=== PATIENT | female | born 1950 | race Caucasian/White ===

== ENCOUNTER 2016-10-15 09:14 | Emergency (ER) | END 2016-10-15 12:48 | disposition home or self-care (01) ==

== ENCOUNTER 2017-04-23 07:33 | Outpatient (CLI) | payer OTHER | END 2017-04-23 07:34 | disposition home or self-care (01) | DX: Z00.00 Encounter for general adult medical examination without abnormal findings (principal); Z79.899 Other long term (current) drug therapy; M81.0 Age-related osteoporosis without current pathological fracture ==

== ENCOUNTER 2017-05-28 10:50 | Outpatient (CLI) | payer OTHER ==
--- NOTE | 2017-05-29 07:56 | Mammography Report ---
REVISED: THIS REPORT WAS ORIGINALLY SIGNED ON 05/29/2017 @ 0913. ORDERS LINKED ON 05/31/2017. DIGITAL BILATERAL DIAGNOSTIC MAMMOGRAM BILATERAL ULTRASOUND: 05/28/2017 CLINICAL HISTORY: A 66-year-old female presenting with reported pain in the right axilla and a palpable lump in the upper-outer quadrant of the left breast. MAMMOGRAM TECHNIQUE: Bilateral CC, MLO and true lateral views obtained. COMPARISON: 08/2016, 07/2014, 08/2009, and 10/2007. MAMMOGRAM FINDINGS: Scattered fibroglandular tissue is present. There is no developing mass, distortion, pleomorphic calcifications or regional skin thickening. Specific attention to the area of pain in the right breast and the sites of palpable concern in the left breast are mammographically negative. There are no suspicious findings. ULTRASOUND TECHNIQUE: A high frequency transducer was utilized to evaluate the areas of reported clinical concern. Survey Coordinator static images obtained. The right axilla and upper-outer quadrant of the left breast were scanned ( areas of reported concern). ULTRASOUND FINDINGS: Normal fibrofatty tissue is identified. No adenopathy, skin thickening, regional hyperemia or shadowing distortion. There are no sonographically suspicious findings. IMPRESSION: (BASED ON BILATERAL MAMMOGRAM AND BILATERAL ULTRASOUND) NEGATIVE EXAMINATION. NO SUSPICIOUS FINDINGS (BIRADS CATEGORY: 1, NEGATIVE). RECOMMENDATION: CLINICAL FOLLOWUP. NEGATIVE IMAGING SHOULD NOT DISSUADE FURTHER EVALUATION OF ANY SUSPICIOUS CHANGES. ANNUAL SCREENING MAMMOGRAPHY IS RECOMMENDED. STANDARD QUALIFYING STATEMENTS 1. This examination was reviewed with the aid of Computed-Aided Detection (CAD) . 2. A negative or benign imaging report should not delay biopsy if clinically suspicious findings are present. Consider surgical consultation if warranted. More than 5% of cancers are not identified by imaging. 3. Dense breasts may obscure an underlying neoplasm. JOB #: [id number] EXT JOB #: [id number] SELIN
== END 2017-05-28 10:51 | disposition home or self-care (01) ==
LOC: DI 10:50
PROVIDERS: ATTEND Physician Assistant Medical
DX: N63 Unspecified lump in breast (principal)
CPT/HCPCS: 76642; 77066

== ENCOUNTER 2018-05-26 08:01 | Outpatient (CLI) | payer OTHER ==
[2018-05-26 08:25] LABS: BASOPHILS # (AUTO) 0.1 10^3/uL (0.0-0.1); EOSINOPHILS # (AUTO) 0.1 10^3/uL (0.0-0.7); EOSINOPHILS % (AUTO) 2.1 %; HGB - HEMOGLOBIN 13.8 g/dL (12.0-16.0); LYMPHOCYTES # (AUTO) 1.3 10^3/uL (1.5-3.5); LYMPHOCYTES % (AUTO) 22.9 %; MEAN CORPUSCULAR HEMOGLOBIN 29.3 pg (27.0-31.0); MEAN CORPUSCULAR HGB CONC 34.4 g/dL (32.0-36.0); MEAN CORPUSCULAR VOLUME 85.2 fL (81.0-99.0); MONOCYTES # (AUTO) 0.5 10^3/uL (0.0-1.0); MONOCYTES % (AUTO) 8.6 %; NEUTROPHILS # (AUTO) 3.8 10^3/uL (1.5-6.6); NEUTROPHILS % (AUTO) 65.4 %; PLT - PLATELET COUNT 183 10^3/uL (130-450); RED BLOOD COUNT 4.71 10^6/uL (4.20-5.40); RED CELL DISTRIBUTION WIDTH 14.4 % (12.0-15.0); WHITE BLOOD COUNT 5.8 x10^3/uL (4.8-10.8)
[2018-05-26 09:44] LABS: ALBUMIN 4.1 g/dL (3.2-5.5); ALBUMIN/GLOBULIN RATIO 1.1 (1.0-2.2); ALKALINE PHOSPHATASE 39 IU/L (42-121); ALT ALANINE AMINOTRANSFERASE 15 IU/L (10-60); AST ASPARTATE AMINOTRANSFERASE 22 IU/L (10-42); BILIRUBIN,TOTAL 0.7 mg/dL (0.2-1.0); BUN - BLOOD UREA NITROGEN 19 mg/dL (6-20); CALCIUM 9.2 mg/dL (8.5-10.3); CARBON DIOXIDE - CO2 28 mmol/L (21-32); CHLORIDE 105 mmol/L (101-111); CHOL/HDL RATIO 3.6 (<4.4); CHOLESTEROL 199 mg/dL; CREATININE 0.8 mg/dL (0.4-1.0); GFR - MDRD 72 (>89); GLUCOSE 107 mg/dL (70-100); HDL CHOLESTEROL 55 mg/dL; LDL CHOLESTEROL,CALCULATED 123 mg/dL; LDL/HDL RATIO 2.2 (<4.4); SODIUM 141 mmol/L (135-145); TOTAL PROTEIN 7.7 g/dL (6.7-8.2); VLDL CHOLESTEROL 21 mg/dL
== END 2018-05-26 08:02 | disposition home or self-care (01) ==
LOC: LAB 08:01
PROVIDERS: ATTEND Physician Assistant Medical
DX: Z00.00 Encounter for general adult medical examination without abnormal findings (principal); M81.0 Age-related osteoporosis without current pathological fracture; E55.9 Vitamin D deficiency, unspecified; E03.9 Hypothyroidism, unspecified; Z79.899 Other long term (current) drug therapy
CPT/HCPCS: 36415; 80053; 80061; 82306; 83721; 84443; 85025

== ENCOUNTER 2019-04-21 16:19 | Outpatient (CLI) | payer OTHER ==
--- NOTE | 2019-04-22 10:03 | Ultrasound Report ---
Reason: PELVIC PAIN Procedure Date: 04/21/2019 Accession Number: [id number] / [id number] Procedure: US - Pelvic w/Transvaginal CPT Code: FULL RESULT: EXAM: PELVIC ULTRASOUND EXAM DATE: 04/21/2019 05:15 PM. CLINICAL HISTORY: Pelvic pain. COMPARISON: None. TECHNIQUE: Realtime transabdominal pelvic scan performed to identify the uterus and adnexa and as an overview of other pelvic structures, followed by transvaginal scan to provide greater detail of the uterus and adnexa, with static image documentation. FINDINGS: Uterus: 5.8 x 1.9 x 3.3 cm, volume 19 cc. Anteverted position. Normal overall size and echotexture. Masses: None. Endometrium: 2 mm. A few echogenic foci in the fundal area of the endometrium, air versus small amount of calcification, favor air given 30 shadowing. Cervix: Unremarkable. Right Ovary: Not seen despite best transabdominal and transvaginal attempt due to poor acoustic window. Adnexal region is within normal limits. Left Ovary: 1.8 x 1.7 x 2.0 cm, volume 3.2 cc. Normal echotexture and blood flow. Cyst measuring up to 1.7 cm is within physiologic limits. Free Fluid: None. Other: None. IMPRESSION: A few echogenic foci within the endometrium likely represent air, nonspecific finding. Nonvisualization of the right ovary. Normal endometrial thickness. RADIA
== END 2019-04-21 16:20 | disposition home or self-care (01) ==
LOC: DI 16:19
PROVIDERS: ATTEND Nurse Practitioner
DX: R10.2 Pelvic and perineal pain (principal)
CPT/HCPCS: 76830; 76856

== ENCOUNTER 2019-06-13 10:15 | Outpatient (CLI) | payer OTHER ==
--- NOTE | 2019-06-16 00:59 | XRAY Report ---
Reason: SHOULDER JOINT PAIN,LEFT Procedure Date: 06/13/2019 Accession Number: [id number] / [id number] Procedure: XR - Shoulder 3 View LT CPT Code: FULL RESULT: EXAM: LEFT SHOULDER RADIOGRAPHY EXAM DATE: 06/13/2019 10:49 AM. CLINICAL HISTORY: Left shoulder pain after injury. COMPARISON: None. TECHNIQUE: 3 views. FINDINGS: Bones: No fracture seen. Joints: No dislocation. Glenohumeral joint and acromioclavicular joint appear intact. Soft tissues: Grossly unremarkable. IMPRESSION: 1. No acute abnormality seen in the shoulder. RADIA
== END 2019-06-13 10:16 | disposition home or self-care (01) ==
LOC: DI 10:15
PROVIDERS: ATTEND Nurse Practitioner
DX: M25.512 Pain in left shoulder (principal)

== ENCOUNTER 2019-07-17 08:09 | Outpatient (CLI) | payer OTHER ==
[2019-07-17 08:50] LABS: BASOPHILS % (AUTO) 0.6 %; EOSINOPHILS # (AUTO) 0.1 10^3/uL (0.0-0.7); EOSINOPHILS % (AUTO) 1.9 %; HGB - HEMOGLOBIN 12.8 g/dL (12.0-16.0); LYMPHOCYTES # (AUTO) 1.4 10^3/uL (1.5-3.5); LYMPHOCYTES % (AUTO) 19.9 %; MEAN CORPUSCULAR HGB CONC 32.6 g/dL (32.0-36.0); MEAN CORPUSCULAR VOLUME 88.9 fL (81.0-99.0); MEAN PLATELET VOLUME 10.1 fL (7.9-10.8); MONOCYTES # (AUTO) 0.7 10^3/uL (0.0-1.0); MONOCYTES % (AUTO) 9.9 %; NEUTROPHILS # (AUTO) 4.7 10^3/uL (1.5-6.6); NEUTROPHILS % (AUTO) 67.4 %; PLT - PLATELET COUNT 199 10^3/uL (130-450); RED BLOOD COUNT 4.42 10^6/uL (4.20-5.40); RED CELL DISTRIBUTION WIDTH 13.6 % (12.0-15.0); WHITE BLOOD COUNT 6.9 x10^3/uL (4.8-10.8)
== END 2019-07-17 08:10 | disposition home or self-care (01) ==
LOC: LAB 08:09
PROVIDERS: ATTEND Nurse Practitioner
DX: R53.83 Other fatigue (principal); E55.9 Vitamin D deficiency, unspecified; E03.9 Hypothyroidism, unspecified
CPT/HCPCS: 36415; 82306; 84443; 85025

== ENCOUNTER 2019-08-11 15:03 | Emergency (ER) | payer OTHER ==
[2019-08-11 15:14] VITALS: BP 105/81
--- NOTE | 2019-08-11 15:59 | ED Physician Documentation ---
History of Present Illness - Stated complaint Stated Complaint: JAW PX - Chief complaint Chief Complaint: General - History obtained from History obtained from: Patient, Friend - History of Present Illness Timing: Enter time (1230), Today - Additonal information Additional information: 68-year-old female previously well indicates that she was in a meeting today at work when she began to develop some pain in her right jaw. She states the pain is throbbing in nature and was severe enough that she left the meeting and went to go see her physician. Her doctor's office was not able to see her and suggested she come to the emergency department with a concern about the possibility of atypical presentation of coronary disease. The patient states that she is not having chest pain she is not having shortness of breath and she does not have radiation of the pain elsewhere. She became concerned when she was out in the waiting room and developed some numbness in her left hand. Her family history is negative for coronary artery disease she has 4 siblings without coronary disease and she has a mother who had strokes in her 70s but lived to be . The patient states that she is not otherwise been ill. Review of Systems Constitutional: denies: Fever Eyes: denies: Decreased vision Ears: denies: Ear pain Nose: denies: Rhinorrhea / runny nose, Congestion Throat: reports: Dental pain / toothache Cardiac: denies: Chest pain / pressure, Palpitations, Pedal edema, Calf pain Respiratory: denies: Dyspnea, Cough, Wheezing GI: denies: Abdominal Pain, Nausea, Vomiting : denies: Dysuria, Frequency Skin: denies: Rash, Lesions Musculoskeletal: denies: Neck pain, Back pain, Extremity pain Neurologic: reports: Numbness (left hand). denies: Generalized weakness, Focal weakness PD PAST MEDICAL HISTORY - Past Surgical History Past Surgical History: No - Present Medications Home Medications: Ambulatory Orders Medication Instructions Recorded Confirmed Albuterol Sulfate [Proair Hfa 2 puffs IH QID #1 hfa.aer.ad 10/10/16 10/15/16 Inhaler] Azithromycin [Zithromax] 250 mg PO DAILY #6 tablet 10/10/16 10/15/16 Levothyroxine Sodium [Levoxyl] 100 mcg ORAL DAILY 10/10/16 10/15/16 guaiFENesin/CODEINE [Robitussin AC] 10 ml PO Q6H PRN #240 ml 10/10/16 10/15/16 Benzonatate [Tessalon] 100 mg PO TID PRN #20 capsule 10/15/16 guaiFENesin/DEXTROMETHORPHAN 10 ml PO Q6H PRN #120 ml 10/15/16 [Robitussin Dm] predniSONE [Deltasone] 60 mg PO DAILY 5 Days tablet 10/15/16 - Allergies Allergies/Adverse Reactions: Allergies Allergy/AdvReac Type Severity Reaction Status Date / Time No Known Drug Allergies Allergy Verified 10/15/16 09:21 - Social History Does the pt smoke?: No Smoking Status: Never smoker Does the pt drink ETOH?: Yes Does the pt have substance abuse?: No - Immunizations Immunizations are current?: Yes PD ED PE NORMAL - Vitals Vital signs reviewed: Yes (hypertensive diastolic mild as possible ) - General General: Alert and oriented X 3, No acute distress, Well developed/nourished - HEENT HEENT: Atraumatic, PERRL, EOMI, Ears normal, Moist mucous membranes, Pharynx benign, Dentition benign, Other (There is tenderness to the jaw over the maxilla near the ear on the right side. The molar underlying that area is not tender and appears intact. ) - Neck Neck: Supple, no meningeal sign, No bony TTP - Cardiac Cardiac: RRR, No murmur - Respiratory Respiratory: No respiratory distress, Clear bilaterally - Abdomen Abdomen: Normal bowel sounds, Soft, Non tender, Non distended, No organomegaly - Back Back: No CVA TTP, No spinal TTP - Derm Derm: Normal color, Warm and dry, No rash - Extremities Extremities: No deformity, No edema - Neuro Neuro: Alert and oriented X 3, benefits coordinator 2-12 intact, No motor deficit, No sensory deficit, Normal speech Eye Opening: Spontaneous Motor: Obeys Commands Verbal: Oriented GCS Score: 15 - Psych Psych: Normal mood, Normal affect Results - Vitals Vitals: Vital Signs - 24 hr 08/11/19 15:11 Temperature 37 C Heart Rate 79 Respiratory 16 Rate Blood Pressure 105/81 H O2 Saturation 99 Oxygen O2 Source Room air - EKG (time done) 1521 Rate: Rate (enter#) (73) Rhythm: NSR Ischemia: Normal ST segments Compare to prior EKG: Old EKG unavailable Computer interpretation: Agree with computer - Labs Labs: Laboratory Tests 08/11/19 08/11/19 08/11/19 16:06 16:06 16:06 WBC 7.2 RBC 4.76 Hgb 13.6 Hct 41.8 MCV 87.8 MCH 28.6 MCHC 32.5 RDW 13.7 Plt Count 183 MPV 9.8 Neut # (Auto) 5.2 Lymph # (Auto) 1.3 L [place] # (Auto) 0.6 Eos # (Auto) 0.1 Baso # (Auto) 0.0 Absolute Nucleated RBC 0.00 Nucleated RBC % 0.0 Sodium 144 Potassium 4.0 Chloride 106 Carbon Dioxide 29 Anion Gap 9.0 BUN 12 Creatinine 0.8 Estimated GFR (MDRD) 72 L Glucose 92 Calcium 10.1 Total Bilirubin 0.7 AST 19 ALT 18 Alkaline Phosphatase 46 Troponin I High Sens < 2.3 L Total Protein 8.2 Albumin 4.7 Globulin 3.5 Albumin/Globulin Ratio 1.3 Lipase 46 - Rads (name of study) chest Radiology: Prelim report reviewed (Impression: No convincing acute cardiopulmonary abnormality.), EMP read indepedently, See rad report PD MEDICAL DECISION MAKING - ED course Complexity details: reviewed results, re-evaluated patient, considered differential, d/w patient, d/w family ED course: 68-year-old previously well female with some right jaw pain has some tenderness to the right jaw and very likely this is all related to her job. She is concerned about the possibility of coronary disease as her physician was and we have done due diligence to include this in her work-up. I suspect the patient may have necrosis a nerve to a tooth secondary to excessive pressure from grinding her teeth during a stressful meeting. Departure - Departure Disposition: 01 Home, Self Care Clinical Impression: Jaw pain Condition: Stable Instructions: ED TMJ Syndrome Follow-Up: Magdalene Braxton ARNP, CONSULTING SENIOR PRACTICE DIRECTOR-C [Primary Care Provider] -
[2019-08-11 16:09] LABS: BASOPHILS % (AUTO) 0.6 %; EOSINOPHILS # (AUTO) 0.1 10^3/uL (0.0-0.7); HGB - HEMOGLOBIN 13.6 g/dL (12.0-16.0); LYMPHOCYTES # (AUTO) 1.3 10^3/uL (1.5-3.5); LYMPHOCYTES % (AUTO) 17.8 %; MEAN CORPUSCULAR HEMOGLOBIN 28.6 pg (27.0-31.0); MEAN CORPUSCULAR HGB CONC 32.5 g/dL (32.0-36.0); MEAN CORPUSCULAR VOLUME 87.8 fL (81.0-99.0); MEAN PLATELET VOLUME 9.8 fL (7.9-10.8); MONOCYTES # (AUTO) 0.6 10^3/uL (0.0-1.0); MONOCYTES % (AUTO) 7.8 %; NEUTROPHILS # (AUTO) 5.2 10^3/uL (1.5-6.6); NEUTROPHILS % (AUTO) 72.5 %; PLT - PLATELET COUNT 183 10^3/uL (130-450); RED BLOOD COUNT 4.76 10^6/uL (4.20-5.40); RED CELL DISTRIBUTION WIDTH 13.7 % (12.0-15.0); WHITE BLOOD COUNT 7.2 x10^3/uL (4.8-10.8)
[2019-08-11 16:26] LABS: ALBUMIN 4.7 g/dL (3.2-5.5); ALBUMIN/GLOBULIN RATIO 1.3 (1.0-2.2); BILIRUBIN,TOTAL 0.7 mg/dL (0.2-1.0); CALCIUM 10.1 mg/dL (8.5-10.3); CREATININE 0.8 mg/dL (0.4-1.0); TOTAL PROTEIN 8.2 g/dL (6.7-8.2)
--- NOTE | 2019-08-11 16:35 | XRAY Report ---
Reason: chest pain Procedure Date: 08/11/2019 Accession Number: [id number] / [id number] Procedure: XR - Chest 1 View X-Ray CPT Code: 46218 FULL RESULT: EXAM: CHEST RADIOGRAPHY EXAM DATE: 08/11/2019 04:24 PM. CLINICAL HISTORY: Chest pain. COMPARISON: CHEST 2 VIEW PA/LAT 10/15/2016 10:55 AM. TECHNIQUE: 1 view. FINDINGS: Lungs/Pleura: No focal opacities evident. Stable tiny presumed granuloma right lung base. No pleural effusion. No pneumothorax. Mediastinum: Within exam limitations, the cardiomediastinal contour is normal. Other: None. IMPRESSION: No convincing acute cardiopulmonary abnormality. RADIA
== END 2019-08-11 16:53 | disposition home or self-care (01) ==
LOC: ED 15:03
DX: R68.84 Jaw pain (principal)
CPT/HCPCS: 36415; 71045; 80053; 83690; 84484; 85025; 93005; 99283; 99284

== ENCOUNTER 2020-12-26 07:00 | Outpatient (CLI) | payer BC ==
[2021-01-03 14:21] LABS: BACTERIAL VAGINOSIS DNA POSITIVE (NEGATIVE); CANDIDA KRUSEI DNA NEGATIVE (NEGATIVE); TRICHOMONAS VAGINALIS DNA NEGATIVE (NEGATIVE)
[2021-01-03 14:22] LABS: CANDIDA GLABRATA DNA NEGATIVE (NEGATIVE); CANDIDA GROUP DNA NEGATIVE (NEGATIVE)
== END 2020-12-26 23:59 | disposition home or self-care (01) ==
LOC: LAB.R 07:00
PROVIDERS: ATTEND Obstetrics & Gynecology
DX: B37.3 Candidiasis of vulva and vagina (principal)
CPT/HCPCS: 87661; 87801

== ENCOUNTER 2020-12-30 08:20 | Outpatient (CLI) | payer BC ==
[2020-12-30 12:12] LABS: ESTIMATED AVERAGE GLUCOSE 105 mg/dL (70-100); HEMOGLOBIN A1c% 5.3 % (4.27-6.07)
== END 2020-12-30 08:21 | disposition home or self-care (01) ==
LOC: LAB 08:20
PROVIDERS: ATTEND Obstetrics & Gynecology
DX: B37.3 Candidiasis of vulva and vagina (principal)
CPT/HCPCS: 36415; 83036

== ENCOUNTER 2021-04-20 08:00 | Outpatient (CLI) | payer BC ==
[2021-04-20 21:51] LABS: BACTERIAL VAGINOSIS DNA POSITIVE (NEGATIVE); CANDIDA KRUSEI DNA NEGATIVE (NEGATIVE)
[2021-04-20 21:52] LABS: CANDIDA GLABRATA DNA NEGATIVE (NEGATIVE); CANDIDA GROUP DNA NEGATIVE (NEGATIVE); TRICHOMONAS VAGINALIS DNA NEGATIVE (NEGATIVE)
== END 2021-04-20 23:59 | disposition home or self-care (01) ==
LOC: LAB.WC 08:00
PROVIDERS: ATTEND Obstetrics & Gynecology
DX: N89.9 Noninflammatory disorder of vagina, unspecified (principal)
CPT/HCPCS: 87661; 87801

== ENCOUNTER 2021-05-18 07:00 | Outpatient (CLI) | payer BC ==
[2021-05-18 22:39] LABS: BACTERIAL VAGINOSIS DNA POSITIVE (NEGATIVE); CANDIDA GLABRATA DNA NEGATIVE (NEGATIVE); CANDIDA GROUP DNA NEGATIVE (NEGATIVE); CANDIDA KRUSEI DNA NEGATIVE (NEGATIVE); TRICHOMONAS VAGINALIS DNA NEGATIVE (NEGATIVE)
== END 2021-05-18 23:59 | disposition home or self-care (01) ==
LOC: LAB.R 07:00
PROVIDERS: ATTEND Obstetrics & Gynecology
DX: N89.8 Other specified noninflammatory disorders of vagina (principal); B37.3 Candidiasis of vulva and vagina
CPT/HCPCS: 87661; 87801

== ENCOUNTER 2021-05-24 11:42 | Outpatient (CLI) | payer BC ==
[2021-05-24 12:12] LABS: BASOPHILS % (AUTO) 0.5 %; EOSINOPHILS # (AUTO) 0.1 10^3/uL (0.0-0.7); EOSINOPHILS % (AUTO) 1.6 %; HCT - HEMATOCRIT 40.8 % (37.0-47.0); HGB - HEMOGLOBIN 13.4 g/dL (12.0-16.0); LYMPHOCYTES # (AUTO) 1.5 10^3/uL (1.5-3.5); LYMPHOCYTES % (AUTO) 19.5 %; MEAN CORPUSCULAR HEMOGLOBIN 28.5 pg (27.0-31.0); MEAN CORPUSCULAR HGB CONC 32.8 g/dL (32.0-36.0); MEAN CORPUSCULAR VOLUME 86.6 fL (81.0-99.0); MEAN PLATELET VOLUME 9.6 fL (7.9-10.8); MONOCYTES # (AUTO) 0.8 10^3/uL (0.0-1.0); MONOCYTES % (AUTO) 10.6 %; NEUTROPHILS % (AUTO) 67.7 %; PLT - PLATELET COUNT 177 10^3/uL (130-450); RED BLOOD COUNT 4.71 10^6/uL (4.20-5.40); RED CELL DISTRIBUTION WIDTH 14.5 % (12.0-15.0); WHITE BLOOD COUNT 7.4 x10^3/uL (4.8-10.8)
[2021-05-24 12:27] LABS: ALBUMIN 4.4 g/dL (3.2-5.5); ALBUMIN/GLOBULIN RATIO 1.4 (1.0-2.2); BILIRUBIN,TOTAL 0.7 mg/dL (0.2-1.0); CALCIUM 9.6 mg/dL (8.5-10.3); CREATININE 0.8 mg/dL (0.4-1.0); TOTAL PROTEIN 7.5 g/dL (6.7-8.2)
[2021-05-24 12:43] LABS: THYROID STIMULATING HORMONE 0.12 uIU/mL (0.34-5.60)
[2021-05-24 14:37] LABS: FREE T4 (FREE THYROXINE) 1.33 ng/dL (0.58-1.64)
== END 2021-05-24 11:43 | disposition home or self-care (01) ==
LOC: LAB 11:42
PROVIDERS: ATTEND Family Medicine
DX: R53.83 Other fatigue (principal); E55.9 Vitamin D deficiency, unspecified; E03.9 Hypothyroidism, unspecified
CPT/HCPCS: 36415; 80053; 82306; 84439; 84443; 85025

== ENCOUNTER 2021-06-20 16:45 | Outpatient (CLI) | payer BC ==
--- NOTE | 2021-06-21 11:56 | XRAY Report ---
PROCEDURE: Foot 3 View RT INDICATIONS: RIGHT TOE PAIN TECHNIQUE: 4 views of the foot were acquired. COMPARISON: None FINDINGS: Bones: No fractures or dislocations. No suspicious bony lesions. Soft tissues: No tibiotalar joint effusion. Achilles tendon appears normal. IMPRESSION: No evidence acute bony abnormality of the right foot. If clinical suspicion and/or symptoms persist, further assessment with repeat plain films or advanced imaging (e.g., CT, MRI, or bone scan) may be helpful for further assessment. Reviewed by: Nicola Madrid MD on 06/21/2021 11:55 AM PDT Approved by: Nicola Madrid MD on 06/21/2021 11:55 AM PDT Station ID: [id number]
== END 2021-06-20 16:46 | disposition home or self-care (01) ==
LOC: DI 16:45
PROVIDERS: ATTEND Family Medicine
DX: M79.674 Pain in right toe(s) (principal)

== ENCOUNTER 2022-05-15 14:22 | Outpatient (CLI) | payer OTHER ==
--- NOTE | 2022-05-15 16:26 | DEXA Report ---
PROCEDURE: Dexa Spine and/or Hip INDICATIONS: POST MENOPAUSAL TECHNIQUE: Dual energy x-ray absorptiometry (DXA) was performed on a SeeJay System. Regions measur ed are the AP Spine, femoral neck, and if needed forearm. COMPARISON: DEXA 08/14/2016 FINDINGS: Lumbar Spine: Bone Mineral Density 0.931 g/cm/cm,T score -2.1, compared to -2.7 Left Hip: Bone Mineral Density 0.758 g/cm/cm,T score -2.0, compared to -1.9 Left Femoral Neck: Bone Mineral Density 0.746 g/cm/cm, T score -2.1, -2.2 (T score greater or equal to -1.0: NORMAL) (T score from -1.1 to -2.4: OSTEOPENIA) (T score less than or equal to -2.5 to: OSTEOPOROSIS) Impression: Improved bone mineral density within the lumbar spine now demonstrating moderate osteopenia compared to osteoporosis. Relatively stable appearance of moderate osteopenia within the left hip and femoral neck. Patients with diagnosis of osteoporosis or osteopenia should have regular bone mineral density assess ment. For those eligible for Medicare, routine testing is allowed once every 2 years. Testing frequ ency can be increased for patients who have rapidly progressing disease or for those who are receivin g medical therapy to restore bone mass. Reviewed by: Amy Hernandez MD on 05/15/2022 4:24 PM PDT Approved by: Amy Hernandez MD on 05/15/2022 4:24 PM PDT Station ID: [id number]
== END 2022-05-15 14:23 | disposition home or self-care (01) ==
LOC: DI 14:22
PROVIDERS: ATTEND Physician Assistant
DX: Z78.0 Asymptomatic menopausal state (principal); M85.89 Other specified disorders of bone density and structure, multiple sites; E03.9 Hypothyroidism, unspecified
CPT/HCPCS: 36415; 80053; 84439; 84443; 85025

== ENCOUNTER 2022-05-15 14:22 | Outpatient (CLI) | payer OTHER ==
--- NOTE | 2022-05-16 09:52 | Mammography Report ---
BILATERAL DIGITAL SCREENING MAMMOGRAM 3D/2D: 05/15/2022 CLINICAL: Routine screening. Comparison is made to exams dated: 05/28/2017 mammogram, 09/04/2016 mammogram, and 07/16/2014 mammogra m - [facility]. There are scattered fibroglandular elements in both breasts. No significant masses, calcifications, or other findings are seen in either breast. There has been no significant interval change. IMPRESSION: NEGATIVE There is no mammographic evidence of malignancy. A 1 year screening mammogram is recommended. Based on the Tyrer Cuzick model (a risk assessment model) the patients lifetime risk is 6.2% and her 10 year risk is 3.7%. According to the ACR, ACS, and NCCN guidelines, an annual breast MRI exam nehemiah g with mammogram is recommended if the patients lifetime risk is 20% or greater. This exam was interpreted at Station ID: [id number]. NOTE: For mammograms, a report in lay terms will be sent to the patient. Approximately 15% of breast malignancies will not be visualized mammographically. In the management of a palpable breast mass, a negative mammogram must not discourage biopsy of a clinically suspicious lesion. Electronically Signed By: Daxa major/florencia:05/15/2022 14:57:29 ACR BI-RADS Category 1: Negative 3341F PARENCHYMAL PATTERN: (A) - The breast(s) demonstrate(s) scattered fibroglandular densities. BI-RADS CATEGORY: (1) - 1 RECOMMENDATION: (ANNUAL) - Recommend routine annual screening mammography. [id number] 1 year screening LATERALITY: (B)
== END 2022-05-15 14:23 | disposition home or self-care (01) ==
LOC: DI 14:22
PROVIDERS: ATTEND Physician Assistant
DX: Z12.31 Encounter for screening mammogram for malignant neoplasm of breast (principal)

== ENCOUNTER 2022-05-15 14:55 | Outpatient (CLI) | payer OTHER ==
[2022-05-15 15:20] LABS: BASOPHILS % (AUTO) 0.4 %; EOSINOPHILS # (AUTO) 0.1 10^3/uL (0.0-0.7); EOSINOPHILS % (AUTO) 1.6 %; HCT - HEMATOCRIT 40.6 % (37.0-47.0); HGB - HEMOGLOBIN 13.6 g/dL (12.0-16.0); LYMPHOCYTES # (AUTO) 1.4 10^3/uL (1.5-3.5); LYMPHOCYTES % (AUTO) 18.5 %; MEAN CORPUSCULAR HEMOGLOBIN 28.5 pg (27.0-31.0); MEAN CORPUSCULAR HGB CONC 33.5 g/dL (32.0-36.0); MEAN CORPUSCULAR VOLUME 85.1 fL (81.0-99.0); MEAN PLATELET VOLUME 9.4 fL (7.9-10.8); MONOCYTES # (AUTO) 0.6 10^3/uL (0.0-1.0); MONOCYTES % (AUTO) 7.4 %; NEUTROPHILS # (AUTO) 5.5 10^3/uL (1.5-6.6); NEUTROPHILS % (AUTO) 71.8 %; PLT - PLATELET COUNT 203 10^3/uL (130-450); RED BLOOD COUNT 4.77 10^6/uL (4.20-5.40); RED CELL DISTRIBUTION WIDTH 14.5 % (12.0-15.0); WHITE BLOOD COUNT 7.7 x10^3/uL (4.8-10.8)
[2022-05-15 15:33] LABS: ALBUMIN 4.4 g/dL (3.2-5.5); ALBUMIN/GLOBULIN RATIO 1.3 (1.0-2.2); BILIRUBIN,TOTAL 0.8 mg/dL (0.2-1.0); CALCIUM 10.1 mg/dL (8.5-10.3); CREATININE 0.9 mg/dL (0.4-1.0); POTASSIUM 3.8 mmol/L (3.5-5.0); TOTAL PROTEIN 7.9 g/dL (6.7-8.2)
[2022-05-15 15:52] LABS: THYROID STIMULATING HORMONE 0.92 uIU/mL (0.34-5.60)
[2022-05-15 15:54] LABS: FREE T4 (FREE THYROXINE) 1.05 ng/dL (0.58-1.64)
== END 2022-05-15 14:56 | disposition home or self-care (01) ==
LOC: LAB 14:55
PROVIDERS: ATTEND Physician Assistant
DX: E03.9 Hypothyroidism, unspecified (principal)
CPT/HCPCS: 36415; 80053; 84439; 84443; 85025

== ENCOUNTER 2022-08-21 09:57 | Day surgery (SDC) | payer OTHER ==
[2022-08-21] MEDS ORDERED: LACTATED RINGERS 1,000 ML IV ONE ×2 (10:14→13:09)
[2022-08-21] MEDS ORDERED: PROPOFOL 500 MG/50 ML 500 MG/50 ML VIAL ONE (11:58)
--- NOTE | 2022-08-21 12:07 | ANESTHESIA ---
Pre-Anesthesia VS, & Labs - Diagnosis family hx of colon CA - Procedure colonoscopy Height: 5 ft 5 in Weight (kg): 75.7 kg Body Mass Index: 27.8 BMI Classification: Overweight - NPO >8 hours - Is Patient ?: No Home Medications and Allergies Home Medications: Ambulatory Orders Albuterol Sulfate 4 mg PO DAILY 08/20/22 Levothyroxine Sodium [Levoxyl] 100 mcg ORAL DAILY 10/10/16 Albuterol Sulfate 4 mg PO DAILY 08/20/22 Allergies/Adverse Reactions: Allergies Allergy/AdvReac Type Severity Reaction Status Date / Time No Known Drug Allergies Allergy Verified 10/15/16 09:21 Anes History & Medical History - Anesthetic History Anesthesia Complications: reports: No previous complications Family history of Anesthesia Complications: Denies Family history of Malignant Hyperthermia: Denies - Medical History Cardiovascular: reports: None Pulmonary: Gastrointestinal: reports: None Urinary: reports: None Endocrine/Autoimmune: reports: HyPOthyroidism Smoking Status: Never smoker - Surgical History General: reports: Colonoscopy Eyes Ears Nose Throat (EENT): reports: Tonsil/Adenoidectomy Gynecologic: reports: section, Oophrectomy Orthopedic: reports: Arthroscopic surgery Exam General: Alert, Oriented x3, Cooperative Dental: WNL Mouth Openin Fingerbreadth Neck Mobility: Normal Mallampati classification: II Thyromental Distance: 4-6 cm Respiratory: Lungs clear Cardiovascular: Regular rate Plan Anesthesia Type: Total IV Consent for Procedure(s) Verified and Reviewed: Yes Code Status: Attempt Resuscitation ASA classification: 2-Mild systemic disease Is this case an emergency?: No
[2022-08-21] MEDS ORDERED: PROPOFOL 200 MG/20 ML VIAL IVP ONE (12:30)
[2022-08-21 13:26] VITALS: BP 119/66
--- NOTE | 2022-08-21 15:07 | ANESTHESIA POST OP EVALUATION ---
Anesthesia Post Eval - Post Anesthesia Eval Vitals: Last Vital Signs Temp 36.5 C 08/21/22 13:25 Pulse 79 08/21/22 13:25 Resp 16 08/21/22 13:25 BP 119/66 08/21/22 13:25 Pulse Ox 100 08/21/22 13:25 O2 Flow Rate CV Function Including HR & BP: Stable Pain Control: Satisfactory Nausea & Vomiting: Negative Mental Status: Baseline Respiratory Status: Airway Patent Hydration Status: Satisfactory Anesthesia Complications: None
== END 2022-08-21 09:58 | disposition home or self-care (01) ==
LOC: SDS 09:57
PROVIDERS: ATTEND Surgery
PROC: 0DBL8ZZ Excision of Transverse Colon, Via Natural or Artificial Opening Endoscopic (ICD-10-PCS; 2022-08-21)
PROC: 0DBP8ZZ Excision of Rectum, Via Natural or Artificial Opening Endoscopic (ICD-10-PCS; principal; 2022-08-21 11:30)
DX: Z12.11 Encounter for screening for malignant neoplasm of colon (principal); D12.3 Benign neoplasm of transverse colon; K62.1 Rectal polyp; K64.8 Other hemorrhoids; Z80.0 Family history of malignant neoplasm of digestive organs
CPT/HCPCS: 45380; J7120

== ENCOUNTER 2023-02-25 08:00 | Outpatient (CLI) | payer OTHER | END 2023-02-25 23:59 | disposition home or self-care (01) | LOC: LAB.N 08:00 | PROVIDERS: ATTEND Family Medicine | DX: R10.9 Unspecified abdominal pain (principal) | CPT/HCPCS: 87086 ==

== ENCOUNTER 2023-03-12 18:57 | Emergency (ER) | payer MEDICARE, OTHER ==
[2023-03-12 19:24] LABS: BASOPHILS % (AUTO) 0.7 %; EOSINOPHILS # (AUTO) 0.1 10^3/uL (0.0-0.7); HCT - HEMATOCRIT 41.1 % (37.0-47.0); HGB - HEMOGLOBIN 13.2 g/dL (12.0-16.0); LYMPHOCYTES # (AUTO) 1.6 10^3/uL (1.5-3.5); LYMPHOCYTES % (AUTO) 26.4 %; MEAN CORPUSCULAR HEMOGLOBIN 28.1 pg (27.0-31.0); MEAN CORPUSCULAR HGB CONC 32.1 g/dL (32.0-36.0); MEAN CORPUSCULAR VOLUME 87.4 fL (81.0-99.0); MEAN PLATELET VOLUME 10.1 fL (7.9-10.8); MONOCYTES # (AUTO) 0.7 10^3/uL (0.0-1.0); MONOCYTES % (AUTO) 11.6 %; NEUTROPHILS # (AUTO) 3.5 10^3/uL (1.5-6.6); PLT - PLATELET COUNT 199 10^3/uL (130-450); RED CELL DISTRIBUTION WIDTH 14.3 % (12.0-15.0); WHITE BLOOD COUNT 5.9 x10^3/uL (4.8-10.8)
[2023-03-12 19:36] LABS: ALBUMIN 4.2 g/dL (3.2-5.5); ALBUMIN/GLOBULIN RATIO 1.2 (1.0-2.2); BILIRUBIN,TOTAL 0.3 mg/dL (0.2-1.0); CREATININE 0.7 mg/dL (0.4-1.0); POTASSIUM 3.7 mmol/L (3.5-5.0); TOTAL PROTEIN 7.7 g/dL (6.7-8.2)
[2023-03-12 21:09] LABS: BILIRUBIN,URINE NEGATIVE (NEGATIVE); GLUCOSE, URINE (UA) NEGATIVE (NEGATIVE); KETONES,URINE (UA) NEGATIVE (NEGATIVE); LEUKOCYTE ESTERASE, URINE TRACE (NEGATIVE); NITRITE,URINE NEGATIVE (NEGATIVE); OCCULT BLOOD,URINE TRACE-INTA (NEGATIVE); PH,URINE 6.5 PH (5.0-7.5); PROTEIN,URINE NEGATIVE (NEGATIVE); UROBILINOGEN,URINE 0.2 (NORMAL) E.U./dL (NORMAL)
[2023-03-12 21:20] LABS: CLARITY,URINE CLEAR (CLEAR)
[2023-03-12 21:24] LABS: BACTERIA,URINE Rare /HPF (None Seen); RBC,URINE 0-5 /HPF (0-5); SQUAMOUS EPITHELIAL CELL,UR FEW Squamous (<= Few)
--- NOTE | 2023-03-12 22:47 | ED Physician Documentation ---
PD HPI ABD PAIN - Stated complaint Stated Complaint: FLANK PAIN - Chief complaint Chief Complaint: Abd Pain - History obtained from History obtained from: Patient - Additional information Additional information: HPI from patient. Patient c/o one month of flank pain, initially right-sided, but gradually spreading to left flank and thus chief complaint is bilateral flank pain. She was evaluated [id number] when the right flank pain started and was told she had UTI, prescribed and completed a course of antibiotics. She followed up with a local practitioner, was again told she has UTI and prescribed a second course of antibiotics. She was told she will undergo US of kidneys and bladder "to help figure out why I keep getting these infections" (per patient); she is waiting to here from scheduling regarding when she can have this study performed. She presents tonight due to gradually worsening bilateral flank pain since this afternoon. No exacerbating factors; partially ameliorated with standing. Denies fever, dysuria. Mild increased urinary frequency. She has episodic nausea without vomiting. Review of Systems Constitutional: denies: Fever, Chills, Sweats Cardiac: reports: Reviewed and negative Respiratory: reports: Reviewed and negative GI: reports: Nausea. denies: Abdominal Pain (bilateral flank pain, no abdominal pain per se), Abdominal Swelling, Vomiting, Constipation, Diarrhea, Hematemesis, Bloody / black stool : reports: Frequency. 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, Oophrectomy HEENT: Tonsil/Adenoidectomy - Present Medications Home Medications: Ambulatory Orders Medication Instructions Recorded Confirmed Levothyroxine Sodium [Levoxyl] 100 mcg ORAL DAILY 10/10/16 08/20/22 Albuterol Sulfate 4 mg PO DAILY 08/20/22 08/20/22 Amox/Clav 875/125 [Augmentin 1 tablet PO Q12H #13 tablet 03/13/23 875/125 Tab] - Allergies Allergies/Adverse Reactions: Allergies Allergy/AdvReac Type Severity Reaction Status Date / Time No Known Drug Allergies Allergy Verified 03/12/23 19:05 - Social History Does the pt smoke?: No Smoking Status: Never smoker Does the pt drink ETOH?: Yes Does the pt have substance abuse?: No - Immunizations Immunizations are current?: Yes PD ED PE NORMAL - Vitals Vital signs reviewed: Yes - General General: Alert and oriented X 3, No acute distress, Well developed/nourished - Cardiac Cardiac: RRR, No murmur - Respiratory Respiratory: No respiratory distress, Clear bilaterally - Abdomen Abdomen: Soft, Non tender - Back Back: No CVA TTP, No spinal TTP - Derm Derm: Normal color, Warm and dry, No rash Results - Vitals Vitals: Oxygen O2 Source Room air - Labs Labs: Microbiology 03/12/23 20:40 Urine Culture - Final Urine,Random LESS THAN 10,000 COLONIES/ML polymicrobial growth including potential pathogens. This is suggestive of skin or other contamination. Laboratory Tests 03/12/23 03/12/23 03/12/23 19:20 19:20 20:40 WBC 5.9 RBC 4.70 Hgb 13.2 Hct 41.1 MCV 87.4 MCH 28.1 MCHC 32.1 RDW 14.3 Plt Count 199 MPV 10.1 Neut # (Auto) 3.5 Lymph # (Auto) 1.6 [place] # (Auto) 0.7 Eos # (Auto) 0.1 Baso # (Auto) 0.0 Absolute Nucleated RBC 0.00 Nucleated RBC % 0.0 Sodium 138 Potassium 3.7 Chloride 104 Carbon Dioxide 28 Anion Gap 6.0 BUN 10 Creatinine 0.7 Estimated GFR (MDRD) 83 L Glucose 80 Calcium 9.0 Total Bilirubin 0.3 AST 19 ALT 18 Alkaline Phosphatase 47 Total Protein 7.7 Albumin 4.2 Globulin 3.5 Albumin/Globulin Ratio 1.2 Lipase 45 Urine Color LIGHT YELLOW Urine Clarity CLEAR Urine pH 6.5 Ur Specific [place] <=1.005 Urine Protein NEGATIVE Urine Glucose (UA) NEGATIVE Urine Ketones NEGATIVE Urine Occult Blood TRACE-INTA Urine Nitrite NEGATIVE Urine Bilirubin NEGATIVE Urine Urobilinogen 0.2 (NORMAL) Ur Leukocyte Esterase TRACE H Urine RBC 0-5 Urine WBC 6-10 H Ur Squamous Epith Cells FEW Squamous Urine Bacteria Rare Ur Microscopic Review INDICATED Urine Culture Comments INDICATED - Rads (name of study) CT A/P with IV contrast Relevant Findings:: Prelim report reviewed, See rad report PD Medical Decision Making - ED course Complexity details: reviewed results, re-evaluated patient, considered differential, d/w patient ED course: Normal CBC, ER abdominal panel. UA with trace LE and 6-10 WBC/hpf. CT A/P with IV contrast does not demonstrate etiology of symptoms; incidental findings are noted (left adnexal cyst which is increased in size compared to previous (2019) study, left lower lobe nodularity with characteristics that increase suspicion of neoplasm, splenic artery aneurysm that is calcified). No evidence of abscess, pyelonephritis, ureterolithiasis, AAA, aortic dissection. The cause of patient's pain is not apparent at this time. Differential would include musculoskeletal origin, PUD. Results d/w patient. Her UA is minimally abnormal but patient says she has had noticeable improvement in symptoms when she has had the two courses of antibiotics (both were macrobid). Shared decision making utilized to arrive at decision to treat the UA findings as UTI (although I explained that this would not account for her flank pain, as pyelonephritis would have significant signs/symptoms beyond a minimally abnormal UA). Given augmentin PO with rx for same. She is given IV toradol for her flank pain, as well. Return precautions discussed. Departure - Departure Disposition: Home, Self Care Clinical Impression: Urinary tract infection Qualifiers: Urinary tract infection type: site unspecified Hematuria presence: without hematuria Qualified Code(s): N39.0 - Urinary tract infection, site not specified Back pain Qualifiers: Back pain location: low back pain Chronicity: unspecified Back pain laterality: bilateral Sciatica presence: without sciatica Qualified Code(s): M54.50 - Low back pain, unspecified Condition: Good Instructions: ED UTI Cystitis Female Follow-Up: Svetlana Mitchell ARNP [Primary Care Provider] - Prescriptions: Amox/Clav 875/125 [Augmentin 875/125 Tab] 1 tablet PO Q12H #13 tablet Comments: There were no specific/diagnostic findings on tonight's test, including the blood tests and CT scan. As we discussed, there were some incidental abnormalities on the CT scan. The urinalysis was abnormal, but minimally so, with a small amount of white blood cells in the urine. This is an abnormality and sometimes is due to a urinary tract infection. Your symptoms are not particularly suggestive of urinary tract infection (typically, there is marked urinary frequency, sensation of incomplete emptying of the bladder, and burning or discomfort with urination). Given that your symptoms have improved and/or subsided with previous courses of antibiotics, and the fact that it is abnormal to have your white blood cells in the urine, I am prescribing you an antibiotic (Augmentin). You are given the first dose in the emergency department, and a prescription has been electronically submitted to the [facility] pharmacy in [place]. Regarding the abnormalities on the CT scan, there was a left pelvic cyst noted; this was also seen on an ultrasound performed in 2019, although the cyst has grown slightly in size since then. Also noted is a splenic artery aneurysm; this is not causing her symptoms nor is a cause for concern. Lastly, a left lower lobe (of the lung) nodule was noted. This is a small lesion, but the radiologist is concerned about its appearance, and follow-up with your primary care provider is recommended for further study of this finding. You should follow-up with your primary care provider for further investigation of your symptoms, as well as the abnormalities noted on the CT scan, above. Discharge Date/Time: 03/13/23 02:26
[2023-03-12] MEDS ORDERED: iohexoL-300 100 ML VIAL ONE (23:17)
[2023-03-12] MEDS ORDERED: iohexoL-300 100 ML VIAL IVP ONE (23:50)
--- NOTE | 2023-03-13 01:00 | CT Report ---
PROCEDURE: ABDOMEN/PELVIS W INDICATIONS: bilateral flank pain TECHNIQUE: After the administration of intravenous contrast, 5 mm thick sections acquired from the diaphragms to the symphysis. 5 mm thick coronal and sagittal reformats were acquired. For radiation dose reducti on, the following was used: automated exposure control, adjustment of mA and/or kV according to courtney ent size. COMPARISON: Pelvic ultrasound 04/21/2019. FINDINGS: Image quality: Excellent. Lung bases:There is an irregular pulmonary nodule within the left lower lobe measuring up to 1.5 cm on series 4 image 12. Heart: Heart is normal in size. ABDOMEN: Liver: No mass lesion. Gallbladder: Within normal limits without calcified gallstones. Biliary ducts: No biliary ductal dilatation. Pancreas: Unremarkable. Spleen: Normal in size. Adrenal Glands: No adrenal nodules. Kidneys and Ureters: No hydronephrosis. Stomach and Bowel: Stomach, small bowel loops, and colon are normal in caliber and wall thickness. T he appendix is normal. Peritoneum: No abnormal intraperitoneal fluid. No free air. Ventral Wall: No hernia. Abdominal Nodes: No retroperitoneal or mesenteric adenopathy by size criteria. Vessels: Aorta and inferior vena cava are normal in size. There is a peripherally calcified splenic artery aneurysm measuring up to 1.2 cm. PELVIS: Pelvic Organs:There is a left adnexal cyst measuring up to 3.2 cm. This appears increased in size co mpared to the prior pelvic ultrasound. Bladder: Unremarkable. Pelvic Nodes: No enlarged lymph nodes. Miscellaneous: No inguinal hernias. Bones: Visualized osseous structures demonstrate no suspicious lesions. IMPRESSION: 1. No acute intra-abdominal abnormality. 2. Irregular left lower lobe pulmonary nodule is nonspecific but suspicious for a neoplasm. Recommend a follow-up dedicated chest CT. 3. Nonspecific left adnexal cyst measuring up to 3.2 cm appears increased in size compared to the darrel or pelvic ultrasound. Recommend follow-up pelvic ultrasound for further evaluation. 4. Peripherally calcified splenic artery aneurysm noted. Reviewed by: Abelardo Hedrick MD on 03/13/2023 12:59 AM PDT Approved by: Abelardo Hedrick MD on 03/13/2023 12:59 AM PDT Station ID: [id number]
[2023-03-13] MEDS ORDERED: AMOX/CLAV 875 MG/125 MG TABLET PO STA (01:56)
[2023-03-13] MEDS ORDERED: KETOROLAC 30 MG/ML VIAL IVP STA (02:09)
[2023-03-13 02:19] VITALS: BP 126/66
== END 2023-03-13 02:26 | disposition home or self-care (01) ==
LOC: ED 18:57
DX: N39.0 Urinary tract infection, site not specified (principal); M54.50 Low back pain, unspecified
CPT/HCPCS: 36415; 74177; 80053; 81001; 83690; 85025; 87086; 96374; 99284; A9270; Q9967; 81003

== ENCOUNTER 2023-03-19 08:06 | Outpatient (CLI) | payer MEDICARE ==
--- NOTE | 2023-03-19 14:41 | CT Report ---
PROCEDURE: CHEST WO INDICATIONS: ADRENAL ENLARGEMENT, PULMONARY NODULE TECHNIQUE: Noncontrast 1mm axial images were acquired from the pulmonary apices to the posterior costophrenic an gles. Axial 5 mm soft tissue kernel reconstructions were performed as well as 8 mm axial MIP and cor onal and sagittal 5 mm reformations. For radiation dose reduction, the following was used: automate d exposure control, adjustment of mA and/or kV according to patient size. COMPARISON: CT abdomen pelvis 03/12/2023 FINDINGS: Images are denoted as (series #/image #). Lymph nodes: No evidence of thoracic lymphadenopathy however evaluation for mediastinal and hilar mohan nopathy is limited in the absence of intravenous contrast. Vasculature: Aorta and main pulmonary artery diameters are within normal range. Heart: No pericardial effusion. Lung parenchyma and pleura: No significant short interval change in the previously demonstrated irreg ular left lower lobe nodule measuring 1.5 cm (4/224). A few other pulmonary nodules are present, nons pecific. For example a 6 mm right lower lobe subpleural nodule (4/131) and a 4 mm posterior left lowe r lobe nodule (4/163). Regular opacity with cavitary component and/or involvement of adjacent airways present at the inferio r aspect of the right upper lobe appearing to extend across the fissure into the right middle lobe, m easures approximately 2.2 cm (4/140, 10/55). No pleural effusion. Chest wall/musculoskeletal: Multilevel degenerative change of the visualized spine. Visualized upper abdomen: Unremarkable. IMPRESSION: 1. Similar appearance of the previously demonstrated irregular left lower lobe nodule which could pot entially represent a pulmonary neoplasm, other etiologies including infection difficult to fully excl ude. Pulmonology consultation may be helpful to direct further management. If additional imaging is d esired, PET CT may be helpful. 2. Few other nonspecific pulmonary nodules are also present. There is a potential additional irregula r nodule in the right upper lobe which appears to extend across the fissure to the right middle lobe and may involve adjacent airways. Reviewed by: Kevin Daly MD on 03/19/2023 2:39 PM PDT Approved by: Kevin Daly MD on 03/19/2023 2:39 PM PDT Station ID: [id number]
== END 2023-03-19 08:07 | disposition home or self-care (01) ==
LOC: DI 08:06
PROVIDERS: ATTEND Family Medicine
DX: R91.8 Other nonspecific abnormal finding of lung field (principal)

== ENCOUNTER 2023-03-26 11:24 | Outpatient (CLI) | payer MEDICARE ==
--- NOTE | 2023-03-26 14:35 | Ultrasound Report ---
PROCEDURE: Abdomen Limited INDICATIONS: ADRENAL ENLARGEMENT, PULMONARY NODULE TECHNIQUE: Real-time focused scanning was performed of the abdomen, with image documentation. COMPARISONS: CT 03/12/2023 FINDINGS: Liver: Liver measures 13 to 14 cm. Gallbladder: Unremarkable Biliary ducts: Intrahepatic bile ducts are non-dilated. Extrahepatic bile duct caliber measures 4 m m. Normal is 6-7 mm or less in diameter, or 10 mm or less post-cholecystectomy. Pancreas: Visualized portions of the pancreas are sonographically normal. Right kidney: Normal in size and echotexture. Right kidney measures 11 cm long. No hydronephrosis or nephrolithiasis. No solid masses. No complex renal cystic lesions which require follow-up. Aorta: Visualized aorta is normal in caliber at less than 3 cm. IVC: Intrahepatic inferior vena cava is patent. Miscellaneous: No free abdominal fluid. IMPRESSION: No acute right upper quadrant abnormality. No specific adrenal abnormality. Please consider pelvic ul trasound to evaluate the adnexal lesion. Reviewed by: Víctor Oh MD on 03/26/2023 2:33 PM PDT Approved by: Víctor Oh MD on 03/26/2023 2:33 PM PDT Station ID: [id number]
== END 2023-03-26 11:25 | disposition home or self-care (01) ==
LOC: DI 11:24
PROVIDERS: ATTEND Family Medicine
DX: E27.8 Other specified disorders of adrenal gland (principal)

== ENCOUNTER 2024-06-26 12:35 | Outpatient (CLI) | payer MEDICARE ==
[2024-06-26 12:45] LABS: BASOPHILS % (AUTO) 0.7 %; EOSINOPHILS # (AUTO) 0.1 10^3/uL (0.0-0.7); EOSINOPHILS % (AUTO) 2.6 %; HCT - HEMATOCRIT 43.7 % (37.0-47.0); HGB - HEMOGLOBIN 13.9 g/dL (12.0-16.0); LYMPHOCYTES # (AUTO) 1.6 10^3/uL (1.5-3.5); LYMPHOCYTES % (AUTO) 29.1 %; MEAN CORPUSCULAR HEMOGLOBIN 27.6 pg (27.0-31.0); MEAN CORPUSCULAR HGB CONC 31.8 g/dL (32.0-36.0); MEAN CORPUSCULAR VOLUME 86.9 fL (81.0-99.0); MEAN PLATELET VOLUME 9.6 fL (7.9-10.8); MONOCYTES # (AUTO) 0.4 10^3/uL (0.0-1.0); MONOCYTES % (AUTO) 7.9 %; NEUTROPHILS # (AUTO) 3.3 10^3/uL (1.5-6.6); NEUTROPHILS % (AUTO) 59.5 %; PLT - PLATELET COUNT 210 10^3/uL (130-450); RED BLOOD COUNT 5.03 10^6/uL (4.20-5.40); RED CELL DISTRIBUTION WIDTH 14.5 % (12.0-15.0); WHITE BLOOD COUNT 5.5 x10^3/uL (4.8-10.8)
[2024-06-26 13:15] LABS: THYROID STIMULATING HORMONE 0.28 uIU/mL (0.34-5.60)
[2024-06-26 13:16] LABS: ALBUMIN 4.5 g/dL (3.2-5.5); ALBUMIN/GLOBULIN RATIO 1.6 (1.0-2.2); ALKALINE PHOSPHATASE 54 IU/L (42-121); ALT ALANINE AMINOTRANSFERASE 14 IU/L (10-60); AST ASPARTATE AMINOTRANSFERASE 19 IU/L (10-42); BILIRUBIN,TOTAL 0.6 mg/dL (0.2-1.0); BUN - BLOOD UREA NITROGEN 16 mg/dL (6-20); CALCIUM 9.7 mg/dL (8.5-10.3); CARBON DIOXIDE - CO2 29 mmol/L (21-32); CHLORIDE 106 mmol/L (101-111); CHOL/HDL RATIO 4.1 (<4.4); CHOLESTEROL 228 mg/dL; CREATININE 0.7 mg/dL (0.6-1.3); GFR - MDRD 82 (>89); GLUCOSE 84 mg/dL (74-104); HDL CHOLESTEROL 55 mg/dL; LDL CHOLESTEROL,CALCULATED 152 mg/dL; LDL/HDL RATIO 2.8 (<4.4); POTASSIUM 3.9 mmol/L (3.5-4.5); SODIUM 140 mmol/L (135-145); TOTAL PROTEIN 7.4 g/dL (6.4-8.9); TRIGLYCERIDES 106 mg/dL; VLDL CHOLESTEROL 21 mg/dL
== END 2024-06-26 12:36 | disposition home or self-care (01) ==
LOC: LAB 12:35
PROVIDERS: ATTEND Physician Assistant
DX: Z00.00 Encounter for general adult medical examination without abnormal findings (principal); Z13.220 Encounter for screening for lipoid disorders; E03.9 Hypothyroidism, unspecified
CPT/HCPCS: 36415; 80053; 80061; 83721; 84439; 84443; 85025

== ENCOUNTER 2024-06-26 12:44 | Outpatient (CLI) | payer MEDICARE ==
--- NOTE | 2024-06-30 15:32 | DEXA Report ---
PROCEDURE: Dexa Spine and/or Hip INDICATIONS: OSTEOPOROSIS TECHNIQUE: Dual energy x-ray absorptiometry (DEXA) was performed in the regions detailed below. COMPARISON: 05/15/2022 FINDINGS: Lumbar Spine: Bone Mineral Density 0.876 g/cm/cm,T score -2.5. Previously -2.1 Left Femoral Neck: Bone Mineral Density 0.742 g/cm/cm, T score -2.1. Previously -2.1 Left Total Hip: Bone Mineral Density 0.758 g/cm/cm,T score -2.0. Previously -2.0 (T score greater or equal to -1.0: NORMAL) (T score from -1.1 to -2.4: OSTEOPENIA) (T score less than or equal to -2.5 to: OSTEOPOROSIS) IMPRESSION: Worsening lumbar spine osteoporosis Stable femoral osteopenia Patients with diagnosis of osteoporosis or osteopenia should have regular bone mineral density assess ment. For those eligible for Medicare, routine testing is allowed once every 2 years. Testing frequ ency can be increased for patients who have rapidly progressing disease or for those who are receivin g medical therapy to restore bone mass. Reviewed by: Justni Shultz MD on 06/30/2024 2:31 PM DEAN Approved by: Justin Shultz MD on 06/30/2024 2:31 PM DEAN Station ID: [id number]
== END 2024-06-26 12:45 | disposition home or self-care (01) ==
LOC: DI 12:44
PROVIDERS: ATTEND Physician Assistant
DX: M81.0 Age-related osteoporosis without current pathological fracture (principal); Z00.00 Encounter for general adult medical examination without abnormal findings; Z13.220 Encounter for screening for lipoid disorders; E03.9 Hypothyroidism, unspecified
CPT/HCPCS: 36415; 80053; 80061; 83721; 84439; 84443; 85025